=== PATIENT | female | born 2000 | race Caucasian/White ===

== ENCOUNTER 2024-07-23 07:04 | Inpatient (IN) | payer BC ==
[~2024-07-23 07:04] MED LIST: Bupivacaine 0.25% 10 ML SDV ONE
[2024-07-23] MEDS ORDERED: ePHEDrine 50 MG/ML SDV IVPUSH PRN (07:28)
[2024-07-23] MEDS ORDERED: diphenhydrAMINE 50 MG/ML SDV IVPUSH PRN (07:28)
[2024-07-23] MEDS ORDERED: Calcium Carbonate 500 MG Tab.Chew PO PRN (07:47)
[2024-07-23] MEDS ORDERED: Lidocaine 1% 50 ML MDV INJECT PRN (07:47)
[2024-07-23] MEDS: Lactated Ringers 1,000 ML IV SCH (08:11)
[2024-07-23] MEDS: ceFAZolin 2 GM in Sodium Chloride 0.9% 50 ML IV ONE (08:11)
[2024-07-23] MEDS: Misoprostol 25 MCG (1/4 of 100 MCG) Tab VAG SCH (08:11)
[2024-07-23 08:32] LABS: BASOPHILS PERCENT AUTO 0.1 % (0.0-1.0); EOSINOPHILS ABSOLUTE AUTO 0.1 K/mm3 (0.0-0.4); EOSINOPHILS PERCENT AUTO 0.9 % (0.0-6.0); HEMATOCRIT 35.9 % (37.0-47.0); HEMOGLOBIN 11.5 gm/dl (12.0-16.0); IMMATURE GRAN ABSOLUTE AUTO 0.04 K/mm3 (0.00-0.05); IMMATURE GRAN PERCENT AUTO 0.6 % (0.0-0.4); LYMPHOCYTES ABSOLUTE AUTO 1.7 K/mm3 (1.0-4.8); LYMPHOCYTES PERCENT AUTO 24.1 % (24.0-44.0); MEAN CORPUSCULAR HEMOGLOBIN 28.2 pg (28.0-32.0); MONOCYTES ABSOLUTE AUTO 0.4 K/mm3 (0.0-0.8); MONOCYTES PERCENT AUTO 6.3 % (0.0-8.0); NEUTROPHILS ABSOLUTE AUTO 4.8 K/mm3 (1.8-7.7); PLATELET COUNT,PLT 204 K/mm3 (150-400); RED BLOOD CELL COUNT 4.08 M/mm3 (4.10-5.30); WHITE BLOOD CELL COUNT,WBC 7.01 K/mm3 (3.9-11.3)
[2024-07-23] MEDS: ceFAZolin 1 GM in Sodium Chloride 0.9% 50 ML IV SCH (16:02)
[2024-07-23] MEDS: Ondansetron 4 MG/2 ML SDV IVPUSH PRN (18:28)
[2024-07-23] MEDS: Bupivacaine/fentaNYL/NS 100 ML Bag EPIDUR PRN (19:02)
[2024-07-23] MEDS: fentaNYL 100 MCG/2 ML SDV EPIDUR PRN (19:02)
[2024-07-23] MEDS: Oxytocin/0.9 % Sodium Chloride 30 UNIT/500 ML BAG IV SCH (23:32)
[2024-07-24] MEDS: Benzocaine/Menthol 20%-0.5% Spray 78 GM Cannister TOP PRN (02:53)
[2024-07-24] MEDS: Witch Hazel Medicated Pads 40/Jar TOP PRN (02:54)
[2024-07-24] MEDS: Ibuprofen 600 MG Tab PO SCH (03:19)
[2024-07-24 06:14] LABS: HEMATOCRIT 32.2 % (37.0-47.0); HEMOGLOBIN 10.4 gm/dl (12.0-16.0); MEAN CORPUSCULAR HEMOGLOBIN 28.3 pg (28.0-32.0); MEAN CORPUSCULAR HGB CONC 32.3 g/dl (32.0-36.0); MEAN CORPUSCULAR VOLUME 87.7 fl (83.0-99.0); PLATELET COUNT,PLT 180 K/mm3 (150-400); RED BLOOD CELL COUNT 3.67 M/mm3 (4.10-5.30); WHITE BLOOD CELL COUNT,WBC 11.04 K/mm3 (3.9-11.3)
[2024-07-24] MEDS: Prenatal Multivitamin with Calcium/Folic Acid/Iron Tab PO SCH (08:30)
[2024-07-24] MEDS: Acetaminophen 325 MG Tab PO PRN (16:54)
[2024-07-24] MEDS: Docusate Sodium 100 MG Cap PO PRN (20:39)
[2024-07-25 22:21] VITALS: BP 137/80; PULSE 102
== END 2024-07-25 21:40 | disposition home or self-care (01) | DRG 560 ==
LOC: JD.OB 07:04 → OBSVTOIN 23:30 → JD.OB 23:30
PROVIDERS: ADMIT Family Medicine; ATTEND Family Medicine
PROC: 10E0XZZ Delivery of Products of Conception, External Approach (ICD-10-PCS; principal; 2024-07-23)
PROC: 10907ZC Drainage of Amniotic Fluid, Therapeutic from Products of Conception, Via Natural or Artificial Opening (ICD-10-PCS; 2024-07-23)
PROC: 3E0P7VZ Introduction of Hormone into Female Reproductive, Via Natural or Artificial Opening (ICD-10-PCS; 2024-07-23)
PROC: 0KQM0ZZ Repair Perineum Muscle, Open Approach (ICD-10-PCS; 2024-07-23)
PROC: 3E0R3BZ Introduction of Anesthetic Agent into Spinal Canal, Percutaneous Approach (ICD-10-PCS; 2024-07-23)
PROC: 00HU33Z Insertion of Infusion Device into Spinal Canal, Percutaneous Approach (ICD-10-PCS; 2024-07-23)
DX: O48.0 Post-term pregnancy (principal); Z37.0 Single live birth; O99.824 Streptococcus B carrier state complicating childbirth; O70.1 Second degree perineal laceration during delivery; Z3A.40 40 weeks gestation of pregnancy; Z88.0 Allergy status to penicillin
CPT/HCPCS: 01967; 36415; 51702; 59025; 59409; 85025; 85027; 86592; 86850; 86900; 86901; A9270-GY; J0665; J0690; J2405; J3010; J3490; J7120; J7999